=== PATIENT | male | born 1975 | race Caucasian/White ===

== ENCOUNTER 2021-07-22 19:23 | Emergency (ER) | payer SELFPAY ==
[~2021-07-22] VITALS: Ht 177.8 cm; Wt 88.0 kg
== END 2021-07-22 20:23 | disposition home or self-care (01) ==
LOC: ER 19:23
DX: U07.1 COVID-19 (principal)
CPT/HCPCS: 87081; 87430; 99282; A9270

== ENCOUNTER 2022-09-06 02:32 | Emergency (ER) | payer BC ==
[~2022-09-06] VITALS: Ht 177.8 cm; Wt 93.0 kg
[2022-09-06 03:04] LABS: BASOPHILS ABSOLUTE AUTO 0.04 K/mm3 (0.00-0.23); BASOPHILS PERCENT AUTO 1 % (0-2); EOSINOPHILS PERCENT AUTO 1 % (0-6); Hematocrit 43.2 % (37.0-53.0); Hemoglobin 15.1 g/dL (13.5-17.5); IMMATURE GRAN ABSOLUTE AUTO 0.02 K/mm3 (0.00-0.10); IMMATURE GRAN PERCENT AUTO 0 % (0-1); LYMPHOCYTES ABSOLUTE AUTO 0.46 K/mm3 (0.84-5.20); LYMPHOCYTES PERCENT AUTO 5 % (21-46); MONOCYTES ABSOLUTE AUTO 0.56 K/mm3 (0.16-1.47); MONOCYTES PERCENT AUTO 6 % (4-13); Mean Corpuscular HGB 32.1 pg (26.0-34.0); Mean Corpuscular Volume 92 fL (80-100); Mean Platelet Volume 9.6 fL (9.1-12.4); NEUTROPHILS ABSOLUTE AUTO 7.62 K/mm3 (1.96-9.15); NEUTROPHILS PERCENT AUTO 87 % (41-73); Platelet Count 225 K/mm3 (150-400); RDW Coefficient Variation 12.9 % (11.7-14.2); Red Blood Cell Count 4.71 M/mm3 (4.30-5.90)
[2022-09-06 03:22] LABS: Albumin, Blood 4.2 g/dL (3.4-5.0); Albumin/Globulin Ratio 1.2 (0.8-1.8); Bilirubin, Total 0.9 mg/dL (0.1-1.0); Calcium, Blood 9.4 mg/dL (8.5-10.1); Creatinine, Blood 1.15 mg/dL (0.60-1.20); Globulin, Blood 3.5 g/dL (2.2-4.0); Potassium, Blood 3.9 mmol/L (3.5-5.5); Total Protein, Blood 7.7 g/dL (6.4-8.2)
[2022-09-06] MEDS ORDERED: ONDA4ODT MM (04:30)
== END 2022-09-06 04:24 | disposition home or self-care (01) ==
LOC: ER 02:32
PROVIDERS: Student in an Organized Health Care Education/Training Program
DX: R55 Syncope and collapse (principal); R11.0 Nausea; R00.0 Tachycardia, unspecified; R06.02 Shortness of breath
CPT/HCPCS: 36415; 80053; 85025; 93005; 93010; A9270